=== PATIENT | female | born 1990 | race Caucasian/White ===

== ENCOUNTER 2019-03-06 08:33 | Emergency (ER) | payer OTHER ==
[~2019-03-06] VITALS: Ht 162.6 cm; Wt 92.1 kg
[2019-03-06] MEDS ORDERED: FORTAMET500 MG PO (08:50)
[2019-03-06] MEDS ORDERED: LEVOTHYROXINE25 MCG PO (08:51)
== END 2019-03-06 11:14 | disposition home or self-care (01) ==
LOC: ER 08:33
DX: K52.9 Noninfective gastroenteritis and colitis, unspecified (principal)